=== PATIENT | male | born 1990 | race Caucasian/White ===

== ENCOUNTER → 2022-12-15 | Outpatient (CLI) | payer BC, SELFPAY ==
[2022-12-15 21:36] LABS: Absolute Lymphocyte Count 2.86 X10^3/uL (0.83-4.51); Absolute Neutrophil Count 1.8 X10^3/uL (2.0-7.7); Basophil# 0.04 X10^3/uL; Basophil% 0.7 % (0-1); Eosinophil# 0.39 X10^3/uL; Eosinophils% 6.9 % (0-5); Hematocrit 45.4 % (40-54); Hemoglobin 14.3 g/dL (13.0-16.5); Lymphocyte # 2.86 X10^3/ul (0.83-4.51); Lymphocyte % 50.5 % (19-41); Mean Corp Hgb Conc 31.5 g/dL (32-36); Mean Corpuscular Volume 92.1 fL (80-94); Mean Platelet Vol. 9.4 fl (6.2-12.0); Monocyte# 0.56 X10^3/uL; Monocyte% 9.9 % (0-10); NRBC Flagged by Analyzer 0 % (0-5); Neutrophil # 1.81 X10^3/uL (2.7-7.7); Platelet Count 279 K/mm3 (150-450); RBC Distribution Width CV 13.3 % (11.6-14.6); RBC Distribution Width SD 45.6 fl (35.1-43.9); Red Blood Count 4.93 M/mm3 (4.6-6.2); White Blood Count 5.7 K/mm3 (4.4-11.0)
[2022-12-15 22:23] LABS: AST(SGOT) 21 U/L (15-37); Alanine Aminotransfer ALT/SGPT 36 U/L (16-61); Albumin, Serum 3.8 g/dL (3.2-5.0); Alkaline Phosphatase 78 U/L (45-117); Anion Gap 4 (5-15); BUN 16 mg/dL (7-18); BUN/Creat Ratio 16.6 RATIO (10-20); Calcium,Total 8.9 mg/dL (8.5-10.1); Chloride 104 mmol/L (98-107); Cholesterol 149 mg/dL (200); Creatinine, Serum 0.96 mg/dL (0.70-1.30); EST Glomerular Filtration Rate 94 mL/min (>60); Est Glom Filt Rate - Afr Amer 114 mL/min (>60); Glucose 86 mg/dL (74-106); High Density Lipoprotein 43 mg/dL; Potassium 4.5 mmol/L (3.5-5.1); Protein, Total 7.8 g/dL (6.4-8.2); Sodium Level 137 mmol/L (136-145); Thyroid Stim Hormone (TSH) 0.81 uIU/mL (0.358-3.74); Triglycerides 144 mg/dL; Very Low Density Lipoprotein 29 mg/dL (5-40)
== END | disposition home or self-care (01) ==
PROVIDERS: Visit Provider Nurse Practitioner
DX: E78.1 Pure hyperglyceridemia (principal); R07.2 Precordial pain
CPT/HCPCS: 80053; 80061; 84443; 85025; 86141

== ENCOUNTER → 2023-02-09 | Outpatient (CLI) | payer BC, SELFPAY ==
--- NOTE | 2023-02-11 09:48 | STRESSREP ---
Stress Test Report Date: 02/09/2023 Procedure: Exercise tolerance test/imaging study Indications: Chest pain Consent: Per the patient Procedure: The patient exercised on a Murphy protocol for 9 minutes and 1 second achieving a peak heart rate of 171 bpm (91% predicted maximal heart rate) with a peak blood pressure 190/70 mmHg and a peak MET capacity of 10.1 METs. The baseline ECG demonstrated normal sinus rhythm. The peak exercise ECG demonstrated no ischemic changes. There were no cardiac dysrhythmias pretest, during exercise, or recovery. The functional capacity was considered good. There was no complaint of chest discomfort during exercise or recovery. The examination was discontinued secondary to target heart rate being achieved and dyspnea. The patient was injected with 13.8 mCi of technetium 99m Cardiolite and subsequently rest SPECT Cardiolite nuclear imaging was obtained in the horizontal long, vertical long, and short axis views. Post-exercise, the patient was injected with 43.9 mCi of technetium 99m Cardiolite and subsequently stress SPECT Cardiolite nuclear imaging was obtained in the horizontal long, vertical long, and short axis views. A gated Cardiolite study at peak stress was obtained. Rest and stress SPECT Cardiolite nuclear imaging status post realignment, normalization, and attenuation correction, demonstrates the appearance of relative uniform tracer uptake and myocardial perfusion appearing within normal limits. There is end systolic thickening and brightening. The gated Cardiolite study demonstrates myocardial thickening and inward wall motion. The reported LVEF is 65%. Impression: 1. Technically adequate (percent predicted maximal heart rate greater than 85%) exercise tolerance test 2. Peak exercise ECG with no ischemic changes 3. There were no cardiac dysrhythmias pretest, during exercise, or recovery 4. Rest and stress SPECT Cardiolite nuclear imaging demonstrate relative uniform tracer uptake and myocardial perfusion appearing within normal limits. 5. The gated Cardiolite study reports an LVEF of 65%. This note was generated with [employer] software. It may contain incorrect words, spelling, and punctuation that were not noted in checking the note before signing.
== END | disposition home or self-care (01) ==
LOC: CVS 06:19
PROVIDERS: Referring Provider Internal Medicine Cardiovascular Disease; Visit Provider Internal Medicine Cardiovascular Disease
DX: R79.82 Elevated C-reactive protein (CRP) (principal); R07.89 Other chest pain; R07.2 Precordial pain; R06.09 Other forms of dyspnea
CPT/HCPCS: 78452; 93017; A9500; A4216

== ENCOUNTER → 2023-05-20 | Outpatient (CLI) | payer BC, SELFPAY ==
[2023-05-20 16:32] LABS: CRP, High Sensitivity Cardiac 6.59 mg/L
== END | disposition home or self-care (01) ==
LOC: LAB 14:48
PROVIDERS: Referring Provider Internal Medicine Cardiovascular Disease; Visit Provider Internal Medicine Cardiovascular Disease
DX: R07.89 Other chest pain (principal); R06.09 Other forms of dyspnea; R79.82 Elevated C-reactive protein (CRP); E66.9 Obesity, unspecified; R07.2 Precordial pain; E78.1 Pure hyperglyceridemia
CPT/HCPCS: 36415; 86141

== ENCOUNTER → 2024-06-01 | Outpatient (CLI) | payer BC, SELFPAY ==
[2024-06-03 04:07] LABS: CRP, High Sensitivity 4.18 mg/L (0.00-3.00)
== END | disposition home or self-care (01) ==
LOC: LAB 14:12
PROVIDERS: Referring Provider Internal Medicine Cardiovascular Disease; Visit Provider Internal Medicine Cardiovascular Disease
DX: R79.82 Elevated C-reactive protein (CRP) (principal)
CPT/HCPCS: 36415; 86141

== ENCOUNTER → 2024-07-10 | Outpatient (CLI) | payer BC, SELFPAY ==
[2024-07-10 12:52] LABS: Erythrocyte Sedimentation Rate 6 mm/hr (0-20)
[2024-07-10 12:56] LABS: Absolute Lymphocyte Count 1.89 X10^3/uL (0.83-4.51); Basophil# 0.05 X10^3/uL; Eosinophil# 0.53 X10^3/uL; Eosinophils% 10.9 % (0-5); Hematocrit 46.3 % (40-54); Hemoglobin 15.2 g/dL (13.0-16.5); Lymphocyte # 1.89 X10^3/ul (0.83-4.51); Lymphocyte % 38.9 % (19-41); Mean Corp Hgb Conc 32.8 g/dL (32-36); Mean Corpuscular Hgb 29.2 pg (27.0-32.0); Mean Platelet Vol. 9.2 fl (6.2-12.0); Monocyte% 8.2 % (0-10); NRBC Flagged by Analyzer 0 % (0-5); Neutrophil # 1.98 X10^3/uL (2.7-7.7); Neutrophil % 40.8 % (47-70); Platelet Count 281 K/mm3 (150-450); RBC Distribution Width CV 13.4 % (11.6-14.6); RBC Distribution Width SD 43.7 fl (35.1-43.9); White Blood Count 4.9 K/mm3 (4.4-11.0)
[2024-07-10 13:28] LABS: ALB/GLOB Ratio 1.3 RATIO (0.9-2.4); AST(SGOT) 31 U/L (<=37); Alanine Aminotransfer ALT/SGPT 36 U/L (<=46); Albumin, Serum 4.4 g/dL (3.5-5.0); Alkaline Phosphatase 89 U/L (40-129); Anion Gap 13 (5-15); BUN 10 mg/dL (4-19); BUN/Creat Ratio 11.8 RATIO (10-20); Calcium,Total 9.4 mg/dL (7.6-11.0); Carbon Dioxide 23.7 mmol/L (21.0-32.0); Chloride 102 mmol/L (98-108); Creatinine, Serum 0.88 mg/dL (0.70-1.20); EST Glomerular Filtration Rate 114 (>60); Globulin 3.4 g/dL (2.2-4.2); Glucose 91 mg/dL (70-99); Hepatitis B Surface Antibody Nonreactive; Hepatitis B Surface Antigen Nonreactive (Nonreactive); Hepatitis C Antibody Nonreactive (Nonreactive); Potassium 4.2 mmol/L (3.3-5.1); Protein, Total 7.8 g/dL (5.9-8.4); Sodium Level 139 mmol/L (133-145); Total Bilirubin 0.41 mg/dL (0.00-1.30)
[2024-07-10 13:58] LABS: Rheumatoid Factor < 10.0 IU/mL (<15)
[2024-07-11 15:08] LABS: ANTINUCLEAR ANTIBODIES DIRECT Negative (Negative); CCP IgG Antibodies 6 units (0-19)
== END | disposition home or self-care (01) ==
LOC: MTLAB 09:45
PROVIDERS: Referring Provider Internal Medicine Rheumatology; Visit Provider Internal Medicine Rheumatology
DX: M06.4 Inflammatory polyarthropathy (principal); K21.9 Gastro-esophageal reflux disease without esophagitis; R51.9 Headache, unspecified; F41.9 Anxiety disorder, unspecified; E78.5 Hyperlipidemia, unspecified
CPT/HCPCS: 36415; 80053; 85025; 85652; 86038; 86140; 86200; 86431; 86706; 86803; 87340

== ENCOUNTER → 2024-10-23 | Outpatient (CLI) | payer OTHER, SELFPAY ==
[2024-10-23 10:52] LABS: Absolute Neutrophil Count 1.8 X10^3/uL (2.0-7.7); Basophil# 0.04 X10^3/uL; Basophil% 0.9 % (0-1); Eosinophil# 0.37 X10^3/uL; Eosinophils% 8.8 % (0-5); Hematocrit 44.3 % (40-54); Hemoglobin 14.3 g/dL (13.0-16.5); Lymphocyte % 40.3 % (19-41); Mean Corp Hgb Conc 32.3 g/dL (32-36); Mean Corpuscular Hgb 28.9 pg (27.0-32.0); Mean Corpuscular Volume 89.5 fL (80-94); Mean Platelet Vol. 8.9 fl (6.2-12.0); Monocyte# 0.29 X10^3/uL; Monocyte% 6.9 % (0-10); NRBC Flagged by Analyzer 0 % (0-5); Neutrophil # 1.81 X10^3/uL (2.7-7.7); Neutrophil % 42.9 % (47-70); POSITIVE MORPHOLOGY YES; Platelet Count 258 K/mm3 (150-450); RBC Distribution Width SD 42.7 fl (35.1-43.9); Red Blood Count 4.95 M/mm3 (4.6-6.2); White Blood Count 4.2 K/mm3 (4.4-11.0)
[2024-10-23 10:59] LABS: Differential Indicated SCAN CRITERIA MET
[2024-10-23 11:00] LABS: Erythrocyte Sedimentation Rate 6 mm/hr (0-20)
[2024-10-23 11:05] LABS: ALB/GLOB Ratio 1.2 RATIO (0.9-2.4); AST(SGOT) 24 U/L (<=37); Alanine Aminotransfer ALT/SGPT 31 U/L (<=46); Albumin, Serum 4.1 g/dL (3.5-5.0); Alkaline Phosphatase 74 U/L (40-129); Anion Gap 11 (5-15); BUN 13 mg/dL (4-19); BUN/Creat Ratio 13.2 RATIO (10-20); Calcium,Total 9.5 mg/dL (7.6-11.0); Carbon Dioxide 25.5 mmol/L (21.0-32.0); Chloride 103 mmol/L (98-108); Creatinine, Serum 1.01 mg/dL (0.70-1.20); EST Glomerular Filtration Rate 99 (>60); Globulin 3.3 g/dL (2.2-4.2); Glucose 93 mg/dL (70-99); Potassium 4.4 mmol/L (3.3-5.1); Protein, Total 7.4 g/dL (5.9-8.4); Sodium Level 140 mmol/L (133-145); Total Bilirubin 0.32 mg/dL (0.00-1.30)
[2024-10-23 11:23] LABS: Atypical Lymphocyte 1+ %; Differential Comment SCANNED
--- OUTSIDE RECORDS SUMMARY | 2024-10-23 18:12 | XMS RPT_ITS | CCD ---
Author Organization [facility] Care Team Providers Care Pre Assembly Wirer Name Role Phone Bhargav, Dr. Howe Attending Provider [phone] Bhargav, Dr. Howe Referring Provider [phone])- Bhargav, Dr. Howe Other Provider Jaskaran, Lizabeth Primary Care Provider Unavailab juve Cardenas BROADCAST MAINTENANCE TECHNICIAN, BROADCAST MAINTENANCE TECHNICIAN-C Shayy Attending Provider Bhargav, Dr. Howe Attending Provider [phone] Bhargav, Dr. Howe Referring Provider [phone] Bhargav, Dr. Howe Other Provider Jessica, Lizabeth Primary Care Provider Unavailab Jackson BROADCAST MAINTENANCE TECHNICIAN, ISABELL-C Shayy Attending Provider Jessica, Lizabeth Referring Provider Unavailable Jessica, Lizabeth Referring Unavailable Jessica, Lizabeth Primary Care Unavailable BhargavShyam Attending Unavailable Jessica, Lizabeth Primary Care Unavailable Vicki Rodríguez Referring Unavailable Vicki Rodríguez Attending Unavailable Jessica, Lizabeth Primary Care Unavailable BhargavShyam Referring Unavailable Bhargav, Shyam Attending Unavailable Jessica, Lizabeth Primary Care Provider Unavailab le Jessica, Lizabeth Referring Provider Unavailable Bhargav , Dr. Howe Attending Provider Dr. Shyam Durant MD Referring Provider Dr. Vicki Rodríguez MD Attending Provider Dr. Vicki Rodríguez MD Referring Provider Allergies Allergy Classification Reported Allergen(s) Allergy Type Date of Onset Reaction(s) Facility (4 sources) cat dander; Translations: [cat dander] Allergy to substance 01-14-2023 Other [facility] Comment on above: Wheezing, runny nose (4 sources) Seasonal Allergies: Uncoded; Translations: [Seasonal Allergies: Uncoded] Allergy to substance 01-14-2023 Other [facility] Comment on above: Wheezing,runny nose Medications Current Medications Medication Drug Class(es) Dates Sig (Normalized) Sig (Original) levocetirizine dihydrochloride 5 mg oral tablet (3 sources) Histamine-1 Receptor Antagonist Start: 01-08-2023 take 1 tablet by mouth once daily Levocetirizine 5 mg tablet Active 5 mg PO DAILY January 08, 2023 12:00am Completed/Discontinued Medications Medication Drug Class(es) Dates Sig (Normalized) Sig (Original) amoxicillin 875 mg / clavulanate 125 mg oral tablet (4 sources) Penicillin-class Antibacterial Start: 08-25-2018 End: 12-16-2022 Amoxicillin-Pot Clavulanate 875-125 mg tablet Discontinued 1 {tbl} PO TWICE A DAY August 25, 2018 12:00am December 16, 2022 9:29am Start: 08-25-2018 End: 12-16-2022 take 1 tablet by mouth twice daily Amoxicillin-Pot Clavulanate Discontinued 1 TABLET PO TWICE A DAY August 24, 2018 11:00pm December 16, 2022 8:29am famotidine 40 mg oral tablet (4 sources) Histamine-2 Receptor Antagonist Start: 12-15-2022 End: 06-01-2024 take 1 tablet by mouth once daily Famotidine 40 mg tablet Discontinued 40 mg PO DAILY December 15, 2022 12:00am June 01, 2024 2:56pm Problems Problem Classification Problem Date Documented Date Episodic/Chronic Disorders of lipid metabolism (4 sources) Hypertriglyceridemia; Translations: [Pure hyperglyceridemia] 12-15-2022 Chronic Esophageal disorders (4 sources) Gastroesophageal reflux disease; Translations: [Gastro-esophageal reflux disease without esophagitis] 12-16-2022 Chronic Fever of unknown origin (4 sources) Fever; Translations: [Fever, unspecified] 08-25-2018 Episodic Nonspecific chest pain (10 sources) Retrosternal pain ; Translations: [Precordial pain] 12-15-2022 Episodic Other lower respiratory disease (4 sources) Cough; Translations: [Cough] 08-25-2018 Episodic Other lower respiratory disease (3 sources) Dyspnea on exertion; Translations: [Other forms of dyspnea] 01-14-2023 Episodic Other lower respiratory disease (1 source) Other forms of dyspnea; Translations: [Other respiratory abnormalities] 01-14-2023 Episodic Other nutritional; endocrine; and metabolic disorders (3 sources) Body mass index 30+ - obesity; Translations: [Obesity, unspecified] 01-14-2023 Chronic Other nutritional; endocrine; and metabolic disorders (2 sources) Obesity, unspecified; Translations: [Obesity, unspecified] 01-14-2023 Chronic Other nutritional; endocrine; and metabolic disorders (2 sources) Body mass index 40+ - severely obese; Translations: [Morbid (severe) obesity due to excess calories] 06-01-2024 Chronic Other screening for suspected conditions (not mental disorders or infectious disease) (7 sources) Elevated C-reactive protein; Translations: [Elevated C-reactive protein (CRP)] Onset: 06-20-2024 01-14-2023 Episodic Other upper respiratory infections (4 sources) Maxillary sinusitis; Translations: [Chronic maxillary sinusitis] 08-25-2018 Chronic Rheumatoid arthritis and related disease (1 source) Inflammatory polyarthropathy; Translations: [Inflammatory polyarthropathy] Onset: 07-20-2024 Chronic Unclassified (2 sources) Elevated high sensitivity C-reactive protein; Translations: [R79.82 - Elevated C-reactive protein (CRP)] Results Test Name Value Interpretation Reference Range Facil ity ANTINUCLEAR ANTIBODIES DIREC Ton 07-11-2024 EMIGDIO,DIRECT Negative Normal Negative [facility] Comment on above: Result Comment: Perf ormed at: [facility] [address] [id number] Hogshead Packer: Efrain Anderson PhD, Phone: [phone] Performed By: #### L 6704.8155 #### [facility] [address] [place], [address] CCP IgG Antibodieson 025 CCP IgG Ab. 6 units Normal 0-19 [facility] Comment on above: Result Comment: Nega tive <20 Weak positive 20 - 39 Moderate positive 40 - 59 Strong positive >59 Performed at: [facility] [address], [place] [id number] Hogshead Packer: Efrain Anderson PhD, Phone: [phone] Performed By: #### L 3520.2110 #### [facility] [address] [place], [place], [id number] EMIGDIO serumOrdered By: Vicki grace on 07-10-2024 Anti-Nuclear Antibody Screen Negative Negative [facility] Comment on above: Performed at: - [address] [id number] Director: Efrain Anderson PhD, Phone: [phone] Absolute neutrophil countOrd ered By: Vicki Rodríguez on 07-10-2024 Neutrophils (Bld) [#/Vol] 2.0 10*3/uL 2.0-7.7 [facility] Anion gap in Serum or Plasma Ordered By: Vicki Rodríguez on 07-10-2024 Anion gap [Moles/Vol] 13 mmol/L 5-15 [facility] BUN/creatinine ratioOrdered By: Vicki Rodríguez on 07-10-2024 Urea nitrogen/Creatinine [Mass ratio] 11.8 mg/mg 10- [facility] Basophil percentageOrdered B y: Vicki Rodríguez on 07-10-2024 Basophils/100 WBC (Bld) 1.0 % 0- [facility] Bilirubin, totalOrdered By: Vicki Rodríguez on 07-10-2024 Bilirubin [Mass/Vol] 0.41 mg/dL 0.00-1.30 [facility] CBC W/Diff, Automatedon 07-01 Absolute Lymph 1.89 X10 3/uL Normal 0.83-4.51 [facility] Comment on above: Performed By: #### L 500.4050, L505.7010, L100.0100, L501.6710, L3890.6102, L3890.6202, L4600.0100, L3890.6301, L101.9900, L3100.5475 #### [facility] [address], [address] Absolute Neut 2.0 X10 3/uL Normal 2.0-7.7 [facility] Comment on above: Performed By: #### L 500.4050, L505.7010, L100.0100, L501.6710, L3890.6102, L3890.6202, L4600.0100, L3890.6301, L101.9900, L3100.5475 #### [facility] [address] [place], [address] Basophils/100 WBC (Bld) 1.0 % Normal 0-1 [facility] Comment on above: Performed By: #### L 500.4050, L505.7010, L100.0100, L501.6710, L3890.6102, L3890.6202, L4600.0100, L3890.6301, L101.9900, L3100.5475 #### [facility] [address] [place], [place], [id number] (146) Eosinophils/100 WBC (Bld) 10.9 % High 0-5 [facility] Comment on above: Performed By: #### L 500.4050, L505.7010, L100.0100, L501.6710, L3890.6102, L3890.6202, L4600.0100, L3890.6301, L101.9900, L3100.5475 #### [facility] [address] [place], [address] Erythrocyte distribution width (RBC) [Ratio] 13.4 % Normal 11.6-14.6 [facility] Comment on above: Performed By: #### L 500.4050, L505.7010, L100.0100, L501.6710, L3890.6102, L3890.6202, L4600.0100, L3890.6301, L101.9900, L3100.5475 #### [facility] [address] [place], [address] Hematocrit (Bld) [Volume fraction] 46.3 % Normal 40-54 [facility] Comment on above: Performed By: #### L 500.4050, L505.7010, L100.0100, L501.6710, L3890.6102, L3890.6202, L4600.0100, L3890.6301, L101.9900, L3100.5475 #### [facility] [address] [place], [address] Hemoglobin (Bld) [Mass/Vol] 15.2 g/dL Normal 13.0-16.5 [facility] Comment on above: Performed By: #### L 500.4050, L505.7010, L100.0100, L501.6710, L3890.6102, L3890.6202, L4600.0100, L3890.6301, L101.9900, L3100.5475 #### [facility] [address] [place], [address] IG% 0.200 Normal 0.0-0.9 [facility] Comment on above: Result Comment: IG% - Immature Granulocytes (promyelocytes, myelocytes and metamyelocytes) > 1% indicates that a LEFT SHIFT is Present. Performed By: #### L 500.4050, L505.7010, L100.0100, L501.6710, L3890.6102, L3890.6202, L4600.0100, L3890.6301, L101.9900, L3100.5475 #### [facility] [address] [place], [address] Lymphocytes/100 WBC (Bld) 38.9 % Normal 19-41 [facility] Comment on above: Performed By: #### L 500.4050, L505.7010, L100.0100, L501.6710, L3890.6102, L3890.6202, L4600.0100, L3890.6301, L101.9900, L3100.5475 #### [facility] [address] [place], [address] MCH (RBC) [Entitic mass] 29.2 pg Normal 27.0-32.0 [facility] Comment on above: Performed By: #### L 500.4050, L505.7010, L100.0100, L501.6710, L3890.6102, L3890.6202, L4600.0100, L3890.6301, L101.9900, L3100.5475 #### [facility] [address] [place], [address] MCHC (RBC) [Mass/Vol] 32.8 g/dL Normal 32-36 [facility] Comment on above: Performed By: #### L 500.4050, L505.7010, L100.0100, L501.6710, L3890.6102, L3890.6202, L4600.0100, L3890.6301, L101.9900, L3100.5475 #### [facility] [address] [place], [address] MCV (RBC) [Entitic vol] 89.0 fL Normal 80-94 [facility] Comment on above: Performed By: #### L 500.4050, L505.7010, L100.0100, L501.6710, L3890.6102, L3890.6202, L4600.0100, L3890.6301, L101.9900, L3100.5475 #### [facility] [address] [place], [address] Monocytes/100 WBC (Bld) 8.2 % Normal 0-10 [facility] Comment on above: Performed By: #### L 500.4050, L505.7010, L100.0100, L501.6710, L3890.6102, L3890.6202, L4600.0100, L3890.6301, L101.9900, L3100.5475 #### [facility] [address] [place], [address] Neutrophils/100 WBC (Bld) 40.8 % Low 47-70 [facility] Comment on above: Performed By: #### L 500.4050, L505.7010, L100.0100, L501.6710, L3890.6102, L3890.6202, L4600.0100, L3890.6301, L101.9900, L3100.5475 #### [facility] [address] [place], [address] ( Nucleated RBC (Bld) [#/Vol] 0 10*3/uL Normal 0-5 [facility] Comment on above: Performed By: #### L 500.4050, L505.7010, L100.0100, L501.6710, L3890.6102, L3890.6202, L4600.0100, L3890.6301, L101.9900, L3100.5475 #### [facility] [address] [place], [address] Platelet mean volume (Bld) [Entitic vol] 9.2 fL Normal 6.2-12.0 [facility] Comment on above: Performed By: #### L 500.4050, L505.7010, L100.0100, L501.6710, L3890.6102, L3890.6202, L4600.0100, L3890.6301, L101.9900, L3100.5475 #### [facility] [address] [place], [address] Platelets (Bld) [#/Vol] 281 10*3/uL Normal 150-450 [facility] Comment on above: Performed By: #### L 500.4050, L505.7010, L100.0100, L501.6710, L3890.6102, L3890.6202, L4600.0100, L3890.6301, L101.9900, L3100.5475 #### [facility] [address] [place], [address] RBC (Bld) [#/Vol] 5.20 10*6/uL Normal 4.6-6.2 [facility] Comment on above: Performed By: #### L 500.4050, L505.7010, L100.0100, L501.6710, L3890.6102, L3890.6202, L4600.0100, L3890.6301, L101.9900, L3100.5475 #### [facility] [address] [place], [address] RDW SD 43.7 fl Normal 35.1-43.9 [facility] Comment on above: Performed By: #### L 500.4050, L505.7010, L100.0100, L501.6710, L3890.6102, L3890.6202, L4600.0100, L3890.6301, L101.9900, L3100.5475 #### [facility] [address] [place], [address] WBC (Bld) [#/Vol] 4.9 10*3/uL Normal 4.4-11.0 [facility] Comment on above: Performed By: #### L 500.4050, L505.7010, L100.0100, L501.6710, L3890.6102, L3890.6202, L4600.0100, L3890.6301, L101.9900, L3100.5475 #### [facility] [address] [place], [address] CRPon 07-10-2024 C-REACTIVE PROT 7.40 mg/L High 0.0-3.0 [facility] Comment on above: Performed By: #### L 500.4050, L505.7010, L100.0100, L501.6710, L3890.6102, L3890.6202, L4600.0100, L3890.6301, L101.9900, L3100.5475 #### [facility] [address] [place], [place], [id number] CRP [Mass/Vol]Ordered By: Isaias Rodríguez on 07-10-2024 C-Reactive Protein Extended Range 7.40 mg/L High 0.0-3.0 [facility] Carbon dioxide, total [Moles /volume] in Central venous bloodOrdered By: Vicki Rodríguez on 07-10-2024 CO2 [Moles/Vol] 23.7 mmol/L 21.0-32.0 [facility] Chloride assayOrdered By: Isaias Rodríguez on 07-10-2024 Chloride [Moles/Vol] 102 mmol/L 98-108 [facility] Comprehensive Metabolic Prof ilon 07-10-2024 Albumin [Mass/Vol] 4.4 g/dL Normal 3.5-5.0 [facility] Comment on above: Performed By: #### L 500.4050, L505.7010, L100.0100, L501.6710, L3890.6102, L3890.6202, L4600.0100, L3890.6301, L101.9900, L3100.5475 #### [facility] [address] [place], [place], [id number] Albumin/Globulin [Mass ratio] 1.3 {ratio} Normal 0.9-2.4 [facility] Comment on above: Performed By: #### L 500.4050, L505.7010, L100.0100, L501.6710, L3890.6102, L3890.6202, L4600.0100, L3890.6301, L101.9900, L3100.5475 #### [facility] [address] [place], [place], [id number] ALK PHOS 89 U/L Normal 40-129 [facility] Comment on above: Performed By: #### L 500.4050, L505.7010, L100.0100, L501.6710, L3890.6102, L3890.6202, L4600.0100, L3890.6301, L101.9900, L3100.5475 #### [facility] [address] [place], [place], [id number] (270) ALT [Catalytic activity/Vol] 36 U/L Normal <=46 [facility] Comment on above: Performed By: #### L 500.4050, L505.7010, L100.0100, L501.6710, L3890.6102, L3890.6202, L4600.0100, L3890.6301, L101.9900, L3100.5475 #### [facility] [address] [place], [address] AST [Catalytic activity/Vol] 31 U/L Normal <=37 [facility] Comment on above: Performed By: #### L 500.4050, L505.7010, L100.0100, L501.6710, L3890.6102, L3890.6202, L4600.0100, L3890.6301, L101.9900, L3100.5475 #### [facility] [address] [place], [address] Bilirubin [Mass/Vol] 0.41 mg/dL Normal 0.00-1.30 [facility] Comment on above: Performed By: #### L 500.4050, L505.7010, L100.0100, L501.6710, L3890.6102, L3890.6202, L4600.0100, L3890.6301, L101.9900, L3100.5475 #### [facility] [address] [place], [address] BUN/CRE 11.8 RATIO Normal 10-20 [facility] Comment on above: Performed By: #### L 500.4050, L505.7010, L100.0100, L501.6710, L3890.6102, L3890.6202, L4600.0100, L3890.6301, L101.9900, L3100.5475 #### [facility] [address] [place], [address] Calcium [Mass/Vol] 9.4 mg/dL Normal 7.6-11.0 [facility] Comment on above: Performed By: #### L 500.4050, L505.7010, L100.0100, L501.6710, L3890.6102, L3890.6202, L4600.0100, L3890.6301, L101.9900, L3100.5475 #### [facility] [address] [place], [place], [id number] (563) Chloride [Moles/Vol] 102 mmol/L Normal 98-108 [facility] Comment on above: Performed By: #### L 500.4050, L505.7010, L100.0100, L501.6710, L3890.6102, L3890.6202, L4600.0100, L3890.6301, L101.9900, L3100.5475 #### [facility] [address] [place], [address] CO2 [Moles/Vol] 23.7 mmol/L Normal 21.0-32.0 [facility] Comment on above: Performed By: #### L 500.4050, L505.7010, L100.0100, L501.6710, L3890.6102, L3890.6202, L4600.0100, L3890.6301, L101.9900, L3100.5475 #### [facility] [address] [place], [address] Creatinine [Mass/Vol] 0.88 mg/dL Normal 0.70-1.20 [facility] Comment on above: Performed By: #### L 500.4050, L505.7010, L100.0100, L501.6710, L3890.6102, L3890.6202, L4600.0100, L3890.6301, L101.9900, L3100.5475 #### [facility] [address] [place], [place], [id number] (415) GAP 13 Normal 5-15 [facility] Comment on above: Performed By: #### L 500.4050, L505.7010, L100.0100, L501.6710, L3890.6102, L3890.6202, L4600.0100, L3890.6301, L101.9900, L3100.5475 #### [facility] [address] [place], [place], [id number] GFR/1.73 sq M.predicted among non-blacks MDRD (S/P/Bld) [Vol rate/Area] 114 mL/min/{1.73_m2} Normal >60 [facility] Comment on above: Result Comment: mL/m in/1.73m2 CKD-EPI Creatinine Equation (2020) Performed By: #### L 500.4050, L505.7010, L100.0100, L501.6710, L3890.6102, L3890.6202, L4600.0100, L3890.6301, L101.9900, L3100.5475 #### [facility] [address] [place], [place], [id number] Globulin (S) [Mass/Vol] 3.4 g/dL Normal 2.2-4.2 [facility] Comment on above: Performed By: #### L 500.4050, L505.7010, L100.0100, L501.6710, L3890.6102, L3890.6202, L4600.0100, L3890.6301, L101.9900, L3100.5475 #### [facility] [address] [place], [address] Glucose [Mass/Vol] 91 mg/dL Normal 70-99 [facility] Comment on above: Performed By: #### L 500.4050, L505.7010, L100.0100, L501.6710, L3890.6102, L3890.6202, L4600.0100, L3890.6301, L101.9900, L3100.5475 #### [facility] [address] [place], [address] Potassium [Moles/Vol] 4.2 mmol/L Normal 3.3-5.1 [facility] Comment on above: Performed By: #### L 500.4050, L505.7010, L100.0100, L501.6710, L3890.6102, L3890.6202, L4600.0100, L3890.6301, L101.9900, L3100.5475 #### [facility] [address] [place], [address] Sodium [Moles/Vol] 139 mmol/L Normal 133-145 [facility] Comment on above: Performed By: #### L 500.4050, L505.7010, L100.0100, L501.6710, L3890.6102, L3890.6202, L4600.0100, L3890.6301, L101.9900, L3100.5475 #### [facility] [address] [place], [address] T PROT 7.8 g/dL Normal 5.9-8.4 [facility] Comment on above: Performed By: #### L 500.4050, L505.7010, L100.0100, L501.6710, L3890.6102, L3890.6202, L4600.0100, L3890.6301, L101.9900, L3100.5475 #### [facility] [address] [place], [address] Urea nitrogen [Mass/Vol] 10 mg/dL Normal 4-19 [facility] Comment on above: Performed By: #### L 500.4050, L505.7010, L100.0100, L501.6710, L3890.6102, L3890.6202, L4600.0100, L3890.6301, L101.9900, L3100.5475 #### [facility] [address] [place], [address] Cyclic citrullinated peptide IgG QnOrdered By: Vicki Rodríguez on 07-10-2024 Cyclic Citrullinated Peptide IgG Ab 6 units 0-19 [facility] Comment on above: Negative <20 Weak po sitive 20 - 39 Moderate positive 40 - 59 Strong positive >59Performed at: [facility] Director: Efrain Anderson PhD, Phone: [phone] Eosinophil percentageOrdered By: Vicki Rodríguez on 07-10-2024 Eosinophils/100 WBC (Bld) 10.9 % High 0-5 [facility] Erythrocyte Sed Rateon 07-10 SED RATE 6 mm/hr Normal 0-20 [facility] Comment on above: Performed By: #### L 500.4050, L505.7010, L100.0100, L501.6710, L3890.6102, L3890.6202, L4600.0100, L3890.6301, L101.9900, L3100.5475 #### [facility] [address] [place], [address] Erythrocyte distribution wid th ratioOrdered By: Vicki Rodríguez on 07-10-2024 Erythrocyte distribution width (RBC) [Ratio] 13.4 % 11.6-14.6 [facility] Erythrocyte distribution wid th standard deviationOrdered By: Vicki Rodríguez on 07-10-2024 Erythrocyte distribution width (RBC) [Entitic vol] 43.7 fL 35.1-43.9 [facility] Erythrocyte sedimentation ra teOrdered By: Vicki Rodríguez on 07-10-2024 ESR (Bld) [Velocity] 6 mm/h 0-20 [facility] GFR/1.73 sq M.predicted marcin g non-blacks MDRD (S/P/Bld) [Vol rate/Area]Ordered By: Vicki Rodríguez on 07-10-2024 Estimated GFR (MDRD) Non-Af Amer 114 >60 [facility] Comment on above: mL/min/1.73m2 CKD-EP I Creatinine Equation (2020) HBV surface Ab Ql (S)Ordered By: Vicki Rodríguez on 07-10-2024 Hepatitis B Surface Antibody Non-Reactive [facility] Comment on above: <8.5 mIU/mL: Non-Spivey ctive8.5<= x <11.5 mIU/mL: Indeterminate>=11.5 mIU/mL: Reactive Non Reactive: Inconsistent with immunity less than <10 mIU/mL Reactive: Consistent with immunity greater than or equal to 10 mIU/mL HBV surface Ag Ql (S)Ordered By: Vicki Rodríguez on 07-10-2024 Hepatitis B Surface Antigen Non-Reactive Nonreactive [facility] Comment on above: Reactive: Presumptiv e evidence of HBV. Repeatedly reactive samples must be confirmed using a neutralization test ([employer] HBsAg Confirmatory Test)Non-Reactive: HBsAg not detected; does not exclude the possibility of exposure to HBV Hematocrit Auto (Bld) [Volum e fraction]Ordered By: Vicki Rodríguez on 07-10-2024 Hematocrit (Bld) [Volume fraction] 46.3 % 40-54 [facility] Hemoglobin measurementOrdere d By: Vicki Rodríguez on 07-10-2024 Hemoglobin (Bld) [Mass/Vol] 15.2 g/dL 13.0-16.5 [facility] Hepatitis C antibodyOrdered By: Vicki Rodríguez on 07-10-2024 Hepatitis C Antibody Non-Reactive Nonreactive [facility] Comment on above: Reactive: Presumptiv e evidence of antibodies to HCV. Follow CDC recommendations for supplemental testing.Non-Reactive: Antibodies to HCV were not detected; does not exclude the possibility of exposure to HCVReactive Results are presumptive evidence of antibodies to HCV. Follow CDC recommendations for supplemental testing.Order confirmation testing: HCV Quant by PCR testing - HCVPCR #[id number] Non Reactive: < 0.8 Equivocal: >/= 0.8 to < 1.0 Reactive: >/= 1.0The CDC requires that a reactive/equivocal HCV antibody result be sent out for confirmation. HCV Quant by PCR testing. Immature granulocytes/100 WB C Auto (Bld)Ordered By: Vicki Rodríguez on 07-10-2024 Immature granulocytes/100 WBC (Bld) 0.200 % 0.0-0.9 [facility] Comment on above: IG% - Immature Granu locytes (promyelocytes, myelocytes and metamyelocytes) > 1% indicates that a LEFT SHIFT is Present. L3890.6102on 07-10-2024 HEP B Surf Ag Non-Reactive Normal Nonreactive [facility] Comment on above: Result Comment: Reac tive: Presumptive evidence of HBV. Repeatedly reactive samples must be confirmed using a neutralization test ([employer] HBsAg Confirmatory Test) Non-Reactive: HBsAg not detected; does not exclude the possibility of exposure to HBV Performed By: #### L 500.4050, L505.7010, L100.0100, L501.6710, L3890.6102, L3890.6202, L4600.0100, L3890.6301, L101.9900, L3100.5475 #### [facility] Laboratory [facility] [address] [facility] [place], [address] [id number] 07-10-2024 HEP B Surf Ab Non-Reactive Normal [facility] Comment on above: Result Comment: <8.5 mIU/mL: Non-Reactive 8.5<= x <11.5 mIU/mL: Indeterminate >=11.5 mIU/mL: Reactive Non Reactive: Inconsistent with immunity less than <10 mIU/mL Reactive: Consistent with immunity greater than or equal to 10 mIU/mL Performed By: #### L 500.4050, L505.7010, L100.0100, L501.6710, L3890.6102, L3890.6202, L4600.0100, L3890.6301, L101.9900, L3100.5475 #### [facility] [address] [place], [place], [id number] L3890.6301on 07-10-2024 Hepatitis C Ab Non-Reactive Normal Nonreactive [facility] Comment on above: Result Comment: Reac tive: Presumptive evidence of antibodies to HCV. Follow CDC recommendations for supplemental testing. Non-Reactive: Antibodies to HCV were not detected; does not exclude the possibility of exposure to HCV Reactive Results are presumptive evidence of antibodies to HCV. Follow CDC recommendations for supplemental testing. Order confirmation testing: HCV Quant by PCR testing - HCVPCR lc#[id number] Non Reactive: < 0.8 Equivocal: >/= 0.8 to < 1.0 Reactive: >/= 1.0 The [facility] requires that a reactive/equivocal HCV antibody result be sent out for confirmation. HCV Quant by PCR testing. Performed By: #### L 500.4050, L505.7010, L100.0100, L501.6710, L3890.6102, L3890.6202, L4600.0100, L3890.6301, L101.9900, L3100.5475 #### [facility] [address] [facility]. [place], [place], [id number] Laboratory - Chemistry and C hemistry - challengeOrdered By: Vicki Rodríguez on 07-10-2024 AST [Catalytic activity/Vol] 31 U/L <38 [facility] Lymphocytes Auto (Unsp spec) [#/Vol]Ordered By: Vicki Rodríguez on 07-10-2024 Lymphocytes (Bld) [#/Vol] 1.89 10*3/uL 0.83-4.51 [facility] Lymphocytes/100 WBC Auto (Un sp spec)Ordered By: Vicki Rodríguez on 07-10-2024 Lymphocytes/100 WBC (Bld) 38.9 % 19-41 [facility] MCV (mean corpuscular volume ) determinationOrdered By: Vicki Rodríguez on 07-10-2024 MCV (RBC) [Entitic vol] 89.0 fL 80-94 [facility] Mean corpuscular hemoglobin (MCH) determinationOrdered By: Vicki Rodríguez on 07-10-2024 MCH (RBC) [Entitic mass] 29.2 pg 27.0-32.0 [facility] Mean corpuscular hemoglobin concentration (MCHC) determinationOrdered By: Vicki Rodríguez on 07-10-2024 MCHC (RBC) [Mass/Vol] 32.8 g/dL 32-36 [facility] Mean platelet volume determi nationOrdered By: Vicki Rodríguez on 07-10-2024 Platelet mean volume (Bld) [Entitic vol] 9.2 fL 6.2-12.0 [facility] Monocyte percentageOrdered B y: Vicki Rodríguez on 07-10-2024 Monocytes/100 WBC (Bld) 8.2 % 0-10 [facility] Neutrophil percentageOrdered By: Vicki Rodríguez on 07-10-2024 Neutrophils/100 WBC (Bld) 40.8 % Low 47-70 [facility] Nucleated red blood cell per centageOrdered By: Vicki Rodríguez on 07-10-2024 Nucleated RBC/100 WBC (Bld) [Ratio] 0 % 0-5 [facility] Platelet countOrdered By: Isaias Rodríguez on 07-10-2024 Platelets (Bld) [#/Vol] 281 10*3/uL 150-450 [facility] Potassium (Unsp spec) [Mass/ Vol]Ordered By: Vicki Rodríguez on 07-10-2024 Potassium [Moles/Vol] 4.2 mmol/L 3.3-5.1 [facility] RBC Auto (Bld) [#/Vol]Ordere d By: Vicki Rodríguez on 07-10-2024 RBC (Bld) [#/Vol] 5.20 10*6/uL 4.6-6.2 [facility] Rheumatoid Factoron 07-11-19 25 RHEUMATOID FAC < 10.0 Normal <15 [facility] Comment on above: Performed By: #### L 500.4050, L505.7010, L100.0100, L501.6710, L3890.6102, L3890.6202, L4600.0100, L3890.6301, L101.9900, L3100.5475 #### [facility] [place], [address] Rheumatoid factor Ql (S)Orde red By: Vicki Rodríguez on 07-10-2024 Rheumatoid Factor < 10.0 IU/mL <15 [facility] Serum creatinine measurement (mass/volume)Ordered By: Vicki Rodríguez on 07-10-2024 Creatinine [Mass/Vol] 0.88 mg/dL 0.70-1.20 [facility] Serum globulin measurementOr dered By: Vicki Rodríguez on 07-10-2024 Globulin (S) [Mass/Vol] 3.4 g/dL 2.2-4.2 [facility] Serum glucose measurement (m ass/volume)Ordered By: Vicki Rodríguez on 07-10-2024 Glucose [Mass/Vol] 91 mg/dL 70-99 [facility] Serum or plasma alanine samayoa otransferase (ALT) measurementOrdered By: Vicki Rodríguez on 07-10-2024 ALT [Catalytic activity/Vol] 36 U/L <47 [facility] Serum or plasma albumin deborah urement (mass/volume)Ordered By: Vicki Rodríguez on 07-10-2024 Albumin [Mass/Vol] 4.4 g/dL 3.5-5.0 [facility] Serum or plasma albumin/glob ulin mass ratioOrdered By: Vicki Rodríguez on 07-10-2024 Albumin/Globulin [Mass ratio] 1.3 {ratio} 0.9-2.4 [facility] Serum or plasma alkaline sonal sphatase measurementOrdered By: Vicki Rodríguez on 07-10-2024 ALP [Catalytic activity/Vol] 89 U/L 40-129 [facility] Serum or plasma calcium deborah urement (mass/volume)Ordered By: Vicki Rodríguez on 07-10-2024 Calcium [Mass/Vol] 9.4 mg/dL 7.6-11.0 [facility] Serum or plasma urea nitroge n measurement (mass/volume)Ordered By: Vicki Rodríguez on 07-10-2024 Urea nitrogen [Mass/Vol] 10 mg/dL 4-19 [facility] Sodium levelOrdered By: Jey Rodríguez on 07-10-2024 Sodium [Moles/Vol] 139 mmol/L 133-145 [facility] Total proteinOrdered By: Joe Rodríguez on 07-10-2024 Protein [Mass/Vol] 7.8 g/dL 5.9-8.4 [facility] White blood cell (WBC) count Ordered By: Vicki Rodríguez on 07-10-2024 WBC (Bld) [#/Vol] 4.9 10*3/uL 4.4-11.0 [facility] CRP, High Sensitivity [id number] on 06-03-2024 CRP, HIGH SENS 4.18 mg/L High 0.00-3.00 [facility] Comment on above: Result Comment: Rela tive Risk for Future Cardiovascular Event Low <1.00 Average 1.00 - 3.00 High >3.00 Performed at: [facility] [id number] [place], [place] [id number] Hogshead Packer: Efrain Anderson PhD, Phone: [phone] Performed By: #### L 3100.7870 #### [facility] [facility] [place], [address] C-reactive protein measureme nt by high sensitivity methodOrdered By: Shyam Durant on 06-01-2024 C-Reactive Protein High Sensitivity 4.18 mg/L High 0.00-3.00 [facility] Comment on above: Relative Risk for Fu ture Cardiovascular Event Low <1.00 Average 1.00 - 3.00 High >3.00Performed at: [facility] [id number] Director: Efrain Anderson PhD, Phone: [phone] Cardiology Visit Reporton Cardiology Visit Report [facility] [address] [facility] [facility] [place] [address] OFFICE VISIT Date of Service: 06/01/24 MR#: [id number] Acct: [id number] Name: ENZO DOMINGUEZ Rep #: [id number] : 1990 Provider: Dr. Shyam Durant MD Age/Sex: 34/M Location: [facility] Status: Signed HPI HPI History of Present Illness Details: This gentleman had previous history of atypical chest pain and elevated high-sensitivity C-reactive protein is here for follow-up visit. Denies any complaints. No chest pains. No shortness of breath. No palpitations. No orthopnea or PND. No ankle edema. Patient was previously referred to rheumatology for his elevated hs-CRP. However he never made an appointment. Intake Vital Signs 05/20/23 14:19 06/01/24 08:31 Height 5 ft 7.25 in 5 ft 7.25 in Weight: 267 lb BMI 41.5 BP 127/81 H Blood Pressure Location Lt brachial Position Sitting Respiration 16 Pulse 75 Pulse Source NIBP Intake Visit Reasons: 1 Y FU Analytical Lead Required: No Accompanied by: Self Is patient in pain?: No Allergies cat dander Allergy (Severe, Verified 06/01/24 13:56) Other Seasonal Allergies: Uncoded Allergy (Intermediate, Verified 06/01/24 13:56) Other Medications ???Medication ???Instructions ???Recorded ???Confirmed ???Type levocetirizine 5 mg tablet 5 mg PO DAILY Allergies 01/08/23 0 06/01/24 History Ejection fraction %: 65 Have you fallen in the past year?: No PFSH Medical History Atypical chest pain Cough Dyspnea on exertion Elevated high sensitivity C-reactive protein Fever GERD (gastroesophageal reflux disease) Hypertriglyceridemi a Klinefelter syndrome Maxillary sinusitis Obesity (BMI 30-39.9) Pollen allergies Substernal chest pain Surgical History [place] teeth extracted Family History Father Hypertension Heart disease pacemaker Grandmother , age 69 Congestive heart disease Mother Diabetes Skin cancer Other Bladder cancer CAD (coronary artery disease) Seizures Uterine cancer Social History Smoking Status: Never smoker alcohol intake: never substance use type: does not use caffeine: Yes (occasionally) Type: carbonated beverages ROS Const Const: Negative for fatigue, weakness, headache(s) or weight gain ENT ENT: Negative for headache(s), dizziness, Nosebleed/epistaxis or balance problems Cardio Chest Pain: No Palpitations: No Edema: None Muscle aches with walking: None Resp Respiratory: Negative for SOB with activity, SOB at rest or SOB orthopnea SOB lying down GI GI: Negative nausea, vomiting or heartburn Musc Musc: Negative for muscle aches/ myalgia, muscle weakness, joint pain or balance problems Neuro Neuro: Negative for dizziness, lightheadedness, near syncope, syncope, headache(s) or weakness Endo Endo: Negative for fatigue Cardiology Exam Const Appearance: comfortable and no acute distress Nutritional Appearance: obese Neck Neck: no JVD Carotids: Negative bruit Chest Auscultation: Bilateral: Clear to Auscultation Cardio Rate: regular rate Rhythm: regular rhythm Heart sounds: S1 normal and S2 normal GI GI: obese Neuro General: patient alert, patient awake and patient oriented x3 Extremities Lower Extremity Edema: None: Bilateral Supplemental Info Supplemental Information Stress Test Report Date: 02/09/2023 Rest and stress SPECT Cardiolite nuclear imaging status post realignment, normalization, and attenuation correction, demonstrates the appearance of relative uniform tracer uptake and myocardial perfusion appearing within normal limits. There is end systolic thickening and brightening. The gated Cardiolite study demonstrates myocardial thickening and inward wall motion. The reported LVEF is 65%. Impression: 1. Technically adequate (percent predicted maximal heart rate greater than 85%) exercise tolerance test 2. Peak exercise ECG with no ischemic changes 3. There were no cardiac dysrhythmias pretest, during exercise, or recovery 4. Rest and stress SPECT Cardiolite nuclear imaging demonstrate relative uniform tracer uptake and myocardial perfusion appearing within normal limits. 5. The gated Cardiolite study reports an LVEF of 65%. Assessment and Plan Assessment and Plan (1) Atypical chest pain: Status: Resolved Plan: No further chest pains. Exercise stress Myoview negative for ischemia. (2) Elevated high sensitivity C-reactive protein: Status: Chronic Plan: Repeat hs-CRP. Counseled to consult with rheumatology. (3) Morbid obesity with BMI of 40.0-44.9, adult: Statu (more content not included)... Normal [facility] No Panel InformationOrdered By: Shyam Durant on 05-20-2023 C-Reactive Protein High Sensitivity 6.59 mg/L <3.00 [facility] Comment on above: Low Relative Risk of CVD <1.0 mg/L Average Relative Risk of CVD 1.0 - 3.0 mg/L High Relative Risk of CVD >3.0 mg/L Absolute lymphocyte countOrd ered By: Lizabeth Jessica on 12-15-2022 Lymphocytes Auto (Unsp spec) [#/Vol] 2.86 10*3/uL 0.83-4.51 [facility] Basophil percentageOrdered B y: Lizabeth Harrisson on 12-15-2022 Basophils/100 WBC (Bld) 0.7 % 0-1 [facility] Bilirubin [Mass/Vol] 0.20 mg/dL 0.20-1.00 [facility] Comment on above: For patients on eltr ombopag therapy, use of Dimension Brooks TBIL is not recommended. Chloride [Moles/Vol] 104 mmol/L 98-107 [facility] Cholesterol [Mass/Vol] 149 mg/dL <200 [facility] Comment on above: <200 mg/dL Desirable 200-240 mg/dL Borderline >240 mg/dL High Risk Eosinophils/100 WBC (Bld) 6.9 % 0-5 [facility] Glucose [Mass/Vol] 86 mg/dL 74-106 [facility] Neutrophils (Bld) [#/Vol] 1.8 10*3/uL 2.0-7.7 [facility] Neutrophils/100 WBC (Bld) 32.0 % 47-70 [facility] Potassium [Moles/Vol] 4.5 mmol/L 3.5-5.1 [facility] Protein [Mass/Vol] 7.8 g/dL 6.4-8.2 [facility] Sodium [Moles/Vol] 137 mmol/L 136-145 [facility] Triglyceride [Mass/Vol] 144 mg/dL <199 [facility] Comment on above: The drugs N-Acetylcy steine and Metamizole may falsely depress this assay.Serum Triglycerides Reference Interval Normal <150 mg/dL Borderline high 150 - 199 mg/dL High 200 - 499 mg/dL Very High > or = 500 mg/dL WBC (Bld) [#/Vol] 5.7 10*3/uL 4.4-11.0 [facility] Blood erythrocytes count (nu mber/volume)Ordered By: Lizabeth Jessica on 12-15-2022 RBC (Bld) [#/Vol] 4.93 10*6/uL 4.6-6.2 [facility] Blood hemoglobin measurement (mass/volume)Ordered By: Lizabeth Jessica on 12-15-2022 Hemoglobin (Bld) [Mass/Vol] 14.3 g/dL 13.0-16.5 [facility] Blood lymphocytes/100 leukoc ytesOrdered By: Lizabeth Jessica on 12-15-2022 Lymphocytes/100 WBC (Bld) 50.5 % 19-41 [facility] Blood monocytes/100 leukocyt esOrdered By: Lizabeth Jessica on 12-15-2022 Monocytes/100 WBC (Bld) 9.9 % 0-10 [facility] Blood platelet mean volumeOr dered By: Lizabeth Jessica on 12-15-2022 Platelet mean volume (Bld) [Entitic vol] 9.4 fL 6.2-12.0 [facility] Determination of erythrocyte mean corpuscular volume (MCV)Ordered By: Lizabeth Jessica on 12-15-2022 MCV (RBC) [Entitic vol] 92.1 fL 80-94 [facility] Hematocrit Auto (Bld) [Volum e fraction]Ordered By: Lizabeth Jessica on 12-15-2022 Hematocrit (Bld) [Volume fraction] 45.4 % 40-54 [facility] Laboratory - Chemistry and C hemistry - challengeOrdered By: Lizabeth Jessica on 12-15-2022 ALP [Catalytic activity/Vol] 78 U/L 45-117 [facility] ALT [Catalytic activity/Vol] 36 U/L 16-61 [facility] CO2 [Moles/Vol] 29.0 mmol/L 21.0-32.0 [facility] Globulin (S) [Mass/Vol] 4.0 g/dL 2.2-4.2 [facility] Urea nitrogen/Creatinine [Mass ratio] 16.6 mg/mg 10-20 [facility] - Hematology and Cell countsOrdered By: Lizabeth Jessica on 12-15-2022 Erythrocyte distribution width (RBC) [Entitic vol] 45.6 fL 35.1-43.9 [facility] Erythrocyte distribution width (RBC) [Ratio] 13.3 % 11.6-14.6 [facility] Immature granulocytes/100 WBC (Bld) 0.000 % 0.0-0.9 [facility] Comment on above: IG% - Immature Granu locytes (promyelocytes, myelocytes and metamyelocytes) > 1% indicates that a LEFT SHIFT is Present. MCH (RBC) [Entitic mass] 29.0 pg 27.0-32.0 [facility] Nucleated RBC/100 WBC (Bld) [Ratio] 0 % 0-5 [facility] MCHC Auto (RBC) [Mass/Vol]Or dered By: Lizabeth Jessica on 12-15-2022 MCHC (RBC) [Mass/Vol] 31.5 g/dL 32-36 [facility] No Panel InformationOrdered By: Lizabeth Jessica on 12-15-2022 C-Reactive Protein High Sensitivity 4.50 mg/L <3.00 [facility] Comment on above: Low Relative Risk of CVD <1.0 mg/L Average Relative Risk of CVD 1.0 - 3.0 mg/L High Relative Risk of CVD >3.0 mg/L Estimated GFR (MDRD) Amer 114 mL/min >60 [facility] Comment on above: GFR Calc Estimated GFR (MDRD) Non-Af Amer 94 mL/min >60 [facility] Comment on above: Non- GFR Calc Thyroid Stimulating Hormone (TSH) 0.81 uIU/mL 0.358-3.74 [facility] Platelets bldOrdered By: Salvatore Jessica on 12-15-2022 Platelets (Bld) [#/Vol] 279 10*3/uL 150-450 [facility] Serum or plasma albumin deborah urement (mass/volume)Ordered By: Lizabeth Jessica on 12-15-2022 Albumin [Mass/Vol] 3.8 g/dL 3.2-5.0 [facility] Serum or plasma albumin/glob ulin mass ratioOrdered By: Lizabeth Jessica on 12-15-2022 Albumin/Globulin [Mass ratio] 1.0 {ratio} 0.9-2.4 [facility] Serum or plasma calcium deborah urement (mass/volume)Ordered By: Lizabeth Jessica on 12-15-2022 Calcium [Mass/Vol] 8.9 mg/dL 8.5-10.1 [facility] Serum or plasma cholesterol in HDL measurement (mass/volume)Ordered By: Lizabeth Jessica on 12-15-2022 Cholesterol in HDL [Mass/Vol] 43 mg/dL >40 [facility] Comment on above: The drugs N-Acetylcy steine and Metamizole may falsely depress this assay. Reference Range HDL <40 mg/dL Low HDL Cholesterol HDL >or= 60 mg/dL High HDL Cholesterol Serum or plasma cholesterol in VLDL measurement (mass/volume)Ordered By: Lizabeth Jessica on 12-15-2022 Cholesterol in VLDL [Mass/Vol] 29 mg/dL 5-40 [facility] Serum or plasma creatinine m easurement (mass/volume)Ordered By: Lizabeth Jessica on 12-15-2022 Creatinine [Mass/Vol] 0.96 mg/dL 0.70-1.30 [facility] Comment on above: The validity of the calculated GFR & GFRAA in patients over 70 years has not been determined. Clinical correlation is essential. Serum or plasma low density lipoprotein (LDL) cholesterol measurement (mass/volume)Ordered By: Lizabeth Jessica on 12-15-2022 Cholesterol in LDL [Mass/Vol] 77 mg/dL 0-130 [facility] Serum or plasma urea nitroge n measurement (mass/volume)Ordered By: Lizabeth Jessica on 12-15-2022 Urea nitrogen [Mass/Vol] 16 mg/dL 7-18 [facility] Thin prep Papanicolaou smear with manual screeningOrdered By: Lizabeth Jessica on 12-15-2022 Thin prep Papanicolaou smear with manual screening 21 U/L 15-37 [facility] Thin prep Papanicolaou smear with manual screening 4 -15 [facility] Vital Signs Date Time Vital Sign Value Performing Clinician Faci lity 06-01-2024 08:31-0500 Body height 170.81 cm Lizabeth Jessica [facility] 06-01-2024 08:31-0500 Body mass index (BMI) [Ratio] 41.5 kg/m2 [facility] 06-01-2024 08:31-0500 Body weight 121.1 kg [facility] 06-01-2024 08:31-0500 Diastolic blood pressure 81 mm[Hg] [facility] 06-01-2024 08:31-0500 Heart rate 75 /min [facility] 06-01-2024 08:31-0500 Respiratory rate 16 /min [facility] 06-01-2024 08:31-0500 Systolic blood pressure 127 mm[Hg] [facility] 05-20-2023 14:19-0500 Body height 170.[address] Shyam Durant Work Phone: [facility] 05-20-2023 14:19-0500 Body mass index (BMI) [Ratio] 38.8 kg/m2 Dr. Shyam Durant Work Phone: [facility] 05-20-2023 14:19-0500 Body weight 113.[address] Shyam Durant Work Phone: [facility] 05-20-2023 14:19-0500 Diastolic blood pressure 82 mm[Hg] Dr. Shyam Durant Work Phone: [facility] 05-20-2023 14:19-0500 Heart rate 64 /min Dr. Shyam Durant Work Phone: [facility] 05-20-2023 14:19-0500 Respiratory rate 18 /min Dr. Shyam Durant Work Phone: [facility] 05-20-2023 14:19-0500 Systolic blood pressure 116 mm[Hg] Dr. Shyam Durant Work Phone: [facility] 01-14-2023 09:15-0400 Body height 170.[address] Shyam Durant Work Phone: [facility] 01-14-2023 09:13-0400 Body weight 108.[address] Shyam Durant Work Phone: [facility] 01-14-2023 09:13-0400 Diastolic blood pressure 81 mm[Hg] Dr. Shyam Durant Work Phone: [facility] 01-14-2023 09:13-0400 Heart rate 61 /min Dr. Shyam Durant Work Phone: [facility] 01-14-2023 09:13-0400 Respiratory rate 16 /min Dr. Shyam Durant Work Phone: [facility] 01-14-2023 09:13-0400 Systolic blood pressure 125 mm[Hg] Dr. Shyam Durant Work Phone: [facility] 12-15-2022 17:09-0400 Body height 170.81 cm [facility] 12-15-2022 17:09-0400 Body mass index (BMI) [Ratio] 37 kg/m2 [facility] 12-15-2022 17:09-0400 Body temperature 97.9 [degF] [facility] 12-15-2022 17:09-0400 Body weight 107.95 kg [facility] 12-15-2022 17:09-0400 Diastolic blood pressure 70 mm[Hg] [facility] 12-15-2022 17:09-0400 Heart rate 75 /min [facility] 12-15-2022 17:09-0400 Respiratory rate 18 /min [facility] 12-15-2022 17:09-0400 SaO2% (BldA) [Mass fraction] 98 % [facility] 12-15-2022 17:09-0400 Systolic blood pressure 128 mm[Hg] [facility] Encounters Encounter Date Encounter Type Care Provider Facility Start: 07-10-2024 End: 07-10-2024 ambulatory Lizabeth Jessica [facility] Work Phone: Start: 07-10-2024 End: 07-10-[address] Vicki Rodríguez MD -Laboratory, [place] Work Phone: Start: 07-10-2024 End: 07-10-2024 ambulatory [facility] Facility:[facility] Start: 06-01-2024 End: 06-01-[address] Shyam Durant MD -[facility] Work Phone: Start: 06-01-2024 End: 06-01-2024 ambulatory [place] Jessica Facility:[facility] Start: 06-01-2024 End: 06-01-2024 ambulatory [facility] Facility:[facility] Start: 05-20-2023 End: 05-20-[address] Shyam Durant Work Phone: [facility] Work Phone: Start: 05-20-2023 End: 05-20-[address] Shyam Durant Work Phone: [facility] Work Phone: Start: 02-11-2023 Non-patient / Non-visit Dr. Shyam Durant Work Phone: [facility] Work Phone: Start: 02-09-2023 End: 02-09-[address] Shyam Durant Work Phone: [facility] Work Phone: Start: 02-09-2023 End: 02-09-[address] Shyam Durant Work Phone: [facility] Work Phone: Start: 01-14-2023 End: 01-14-[address] Shyam Durant Work Phone: [facility] Work Phone: Start: 12-15-2022 End: 12-15-2022 ambulatory [facility] Work Phone: Start: 12-15-2022 End: 12-15-2022 Patient encounter procedure [facility] Work Phone: Procedures Date Procedure Procedure Detail Performing Clinician Start: 02-09-2023 Radionuclide imaging of perfusion of myocardium under exercise stress Dr. Shyam Durant Work Phone: Plan of Treatment Date Care Activity Detail Author Start: 06-01-2024 Patient referral [facility] Work Phone: Measurement of C-glenn ctive protein using high sensitivity technique [facility] Patient referral [facility] Work Phone: [facility] Payers Date Payer Category Payer Self-pay [id number] 2024 Unknown [id number] Unknown [id number] Unknown [id number] Unknown [id number] Social History Date Type Detail [facility] Work Phone: Start: 1990 Sex Assigned At Male [facility] Start: 01-14-2023 End: 05-20-2023 Tobacco smoking status [facility] Unknown if ever smoked [facility] Start: 05-20-2023 [facility] ([facility] Start: 07-20-2024 Sex Male (finding) [facility] Evaluation note 06-01-2024 Note Date & Type Note Facility 06-01-2024 Evaluation note Diagnosis Onset Date Resolution Elevated high sensitivity C-reactive protein chronic June 01 1:32pm Morbid obesity with BMI of 40.0-44.9, adult chronic May 1:32pm Atypical chest pain resolved Janua 2024 1:32pm [facility] Work Phone: Evaluation note Note Date & Type Note Facility Evaluation note Diagnosis Onset Date GERD (gastroesophageal reflux disease) acute Hypertriglyceridemia acute Substernal chest pain acute [facility] [facility] Work Phone: Evaluation note Note Date & Type Note Facility Evaluation note Diagnosis Onset Date Hypertriglyceridemia acute Substernal chest pain acute Atypical chest pain acute Elevated high sensitivity C-reactive protein acute Dyspnea on exertion chronic Obesity (BMI 30-39.9) chroni c [facility] Work Phone: Evaluation note Note Date & Type Note Facility Evaluation note Diagnosis Onset Date Elevated high sensitivity C-reactive protein chronic Obesity (BMI 30-39.9) makennai marcia Atypical chest pain resolved [facility] Work Phone: Chief Complaint and Reason for Visit Chief Complaint Chest pain & Indiges tion Reason for Visit GERD (gastroesophage al reflux disease) Hypertriglyceridemia Substernal chest pain Chief Complaint Chest pain & Indiges tion CP / HLD / ELEVATED CRP (JESSICA) Elevated C-reactive protein (CRP) Elevated C-reactive protein (CRP) Amb Documentation Reason for Visit Hypertriglyceridemia Substernal chest pain Atypical chest pain Elevated high sensitivity C-reactive protein Dyspnea on exertion Obesity (BMI 30-39.9) Chief Complaint Elevated C-reactive protein (CRP) Elevated C-reactive protein (CRP) Amb Documentation 3 M FU Reason for Visit Elevated high sensit ivity C-reactive protein Obesity (BMI 30-39.9) Atypical chest pain Chief Complaint Admit Date 1 Y FU June 01, 2024 1 :32pm PAIN- COPY PCP July 10, 2024 9:4 4am Reason for Visit Admit Date Elevated high sensitivity C-reactive pro tein June 01, 2024 1:32pm Morbid obesity with BMI of 40.0-44.9, ad ult June 01, 2024 1:32pm Atypical chest pain June 01, 2024 1 :32pm Family History Relationship Condition Age at Onset Recorded Date/T kym Not Specified Malignant neoplasm of urinary bladder Un known Coronary artery disease Unknown Seizure Unknown Malignant neoplasm of uterus Unknown father Hypertension Unknown Cardiac disease Unknown grandmother Congestive heart failure Unknown mother Diabetes mellitus Unknown Malignant neoplasm of skin Unknown Summary Purpose Advance Directives No Advanced Directives Records Found Additional Source Comments Care Teams (unrecognized sec tion and content) Team Status: Active Member Role Status Dates Lizabeth Jessica Primary Care Provider Active Team Status: Inactive Member Role Status Dates Lizabeth Jessica Primary Care Provider Active Sta rt: June 01, 2024 End: June 01, 2024 Lizabeth Jessica Referring Provider Active Start: June 01, 2024 End: June 01, 2024 Dr. Shyam Durant MD Attending Provider Active Start: June 01, 2024 End: June 01, 2024 Team Status: Inactive Member Role Status Dates Lizabeth Jessica Primary Care Provider Active Sta rt: June 01, 2024 End: June 01, 2024 Dr. Shyam Durant MD Attending Provider Active Start: June 01, 2024 End: June 01, 2024 Dr. Shyam Durant MD Referring Provider Active Start: June 01, 2024 End: June 01, 2024 Team Status: Inactive Member Role Status Dates Lizabeth Jessica Primary Care Provider Active Sta rt: July 10, 2024 End: July 10, 2024 Dr. Vicki Rodríguez MD Attending Provider Active Start: July 10, 2024 End: July 10, 2024 Dr. Vicki Rodríguez MD Referring Provider Active Start: July 10, 2024 End: July 10, 2024 Team Status: Active Member Role Status Dates Lizabeth Jessica Primary Care Provider Active Team Status: Active Member Role Status Dates Dr. Shyam Durant MD Attending Provider , Referring Provider, Other Provider Active Lizabeth Jessica Primary Care Provider Active Team Status: Active Member Role Status Dates Lizabeth Jessica Primary Care Provider Active Shayy Cardenas BROADCAST MAINTENANCE TECHNICIAN, BROADCAST MAINTENANCE TECHNICIAN-C Attending Provider Active Team Status: Inactive Member Role Status Dates Lizabeth Jessica Primary Care Provider, Referring Provi norma Active Dr. Shyam Durant MD Attending Provider Active Team Status: Inactive Member Role Status Dates Dr. Shyam Durant MD Attending Provider, Referring Pr ovider Active Lizabeth Jessica Primary Care Provider Active Team Status: Inactive Member Role Status Dates Lizabeth Jessica Primary Care Provider Active Dr. Shyam Durant MD Attending Provider, Referring Pr ovider Active Team Status: Inactive Member Role Status Dates Lizabeth Jessica BROADCAST MAINTENANCE TECHNICIAN, BROADCAST MAINTENANCE TECHNICIAN-C Attending Provider Active Team Status: Inactive Member Role Status Dates Dr. Shyam Durant MD Attending Provider Active Team Status: Inactive Member Role Status Dates Lizabeth Jessica Primary Care Provider Active Sta rt: June 01, 2024 End: June 01, 2024 Lizabeth Jessica Referring Provider Active Start: June 01, 2024 End: June 01, 2024 Dr. Shyam Durant MD Attending Provider Active Start: June 01, 2024 End: June 01, 2024 Team Status: Inactive Member Role Status Dates Lizabethzeina HarrisJessica Primary Care Provider Active Sta rt: June 01, 2024 End: June 01, 2024 Dr. Shyam Durant MD Attending Provider Active Start: June 01, 2024 End: June 01, 2024 Dr. Shyam Durant MD Referring Provider Active Start: June 01, 2024 End: June 01, 2024 Team Status: Inactive Member Role Status Dates Lizabethzeina Jessica Primary Care Provider Active Sta rt: July 10, 2024 End: July 10, 2024 Dr. Vicki Rodríguez MD Attending Provider Active Start: July 10, 2024 End: July 10, 2024 Dr. Vicki Rodríguez MD Referring Provider Active Start: July 10, 2024 End: July 10, 2024 Goals (unrecognized section and content) Goals may be documented in a n alternate sectionGoals may be documented in an alternate sectionGoals may be documented in an alternate sectionGoals may be documented in an alternate section (unrecognized sect ion and content) No Status Records Found INFORMATION SOURCE (unrecogn ized section and content) DATE CREATED AUTHOR 07/22/2024 [facility] FOR RECORDS PERTAINING TO PATIENTS WHO ARE OR HAVE BEEN ENROLLED IN A CHEMICAL DEPENDENCY/SUBSTANCEABUSE PROGRAM, SOME INFORMATION MAY BE OMITTED. This clinical summary was aggregated from multiple sources. Caution should be exercised in using it in the provision of clinical care. This summary normalizes information from multiple sources, and as a consequence, information in this document may materially change the coding, format and clinical context of patient data. In addition, data may be omitted in some cases. CLINICAL DECISIONS SHOULD BE BASED ON THE PRIMARY CLINICAL RECORDS. [employer] provides no warranty or guarantee of the accuracy or completeness of information in this document.
== END | disposition home or self-care (01) ==
LOC: MTLAB 08:40
PROVIDERS: Referring Provider Internal Medicine Rheumatology; Visit Provider Internal Medicine Rheumatology
DX: M06.4 Inflammatory polyarthropathy (principal); Z79.899 Other long term (current) drug therapy
CPT/HCPCS: 36415; 80053; 85025; 85652; 86140

== ENCOUNTER → 2025-01-15 | Outpatient (CLI) | payer OTHER, SELFPAY ==
[2025-01-15 15:27] LABS: Hematocrit 44.5 % (40-54); Hemoglobin 14.4 g/dL (13.0-16.5); Immature Granulocytes Count 0.010 X10^3/uL (0.0-0.0); Mean Corp Hgb Conc 32.4 g/dL (32-36); Mean Corpuscular Volume 87.8 fL (80-94); Mean Platelet Vol. 9.3 fl (6.2-12.0); NRBC Flagged by Analyzer 0 % (0-5); Platelet Count 256 K/mm3 (150-450); RBC Distribution Width CV 13.4 % (11.6-14.6); RBC Distribution Width SD 43.2 fl (35.1-43.9); Red Blood Count 5.07 M/mm3 (4.6-6.2); White Blood Count 4.5 K/mm3 (4.4-11.0)
[2025-01-15 16:15] LABS: AST(SGOT) 30 U/L (<=37); Alanine Aminotransfer ALT/SGPT 44 U/L (<=46); Albumin, Serum 4.2 g/dL (3.5-5.0); Alkaline Phosphatase 77 U/L (40-129); Anion Gap 9 (5-15); BUN 11 mg/dL (4-19); BUN/Creat Ratio 10.5 RATIO (10-20); CRP 4.43 mg/L (0.0-3.0); Calcium,Total 9.5 mg/dL (7.6-11.0); Carbon Dioxide 26.4 mmol/L (21.0-32.0); Chloride 103 mmol/L (98-108); Globulin 3.1 g/dL (2.2-4.2); Glucose 91 mg/dL (70-99); Potassium 4.1 mmol/L (3.3-5.1)
== END | disposition home or self-care (01) ==
LOC: MTLAB 13:13
PROVIDERS: Referring Provider Internal Medicine Rheumatology; Visit Provider Internal Medicine Rheumatology
DX: M06.4 Inflammatory polyarthropathy (principal); K21.9 Gastro-esophageal reflux disease without esophagitis
CPT/HCPCS: 36415; 80053; 85025; 85652; 86140